=== PATIENT | male | born 1980 | race Two or more races ===

== ENCOUNTER → 2018-11-02 | Emergency (ER) | payer SELFPAY | END | disposition left against medical advice (07) | LOC: ER 21:37 | DX: R05 Cough (principal); Z53.21 Procedure and treatment not carried out due to patient leaving prior to being seen by health care provider ==

== ENCOUNTER → 2020-02-23 | Emergency (ER) | payer MEDICAID ==
[~2020-02-23] VITALS: Ht 180.3 cm; Wt 102.1 kg
[~2020-02-23] MED LIST: KETOROLAC TROMETH 60MG/2ML VIAL IM ONE
[2020-02-23 07:09] VITALS: BP 125/87
== END | disposition home or self-care (01) ==
LOC: ER 06:10
DX: R07.81 Pleurodynia (principal); Y08.02XA Assault by strike by baseball bat, initial encounter; Y93.89 Activity, other specified; Y92.89 Other specified places as the place of occurrence of the external cause; Y99.8 Other external cause status
CPT/HCPCS: 71101; 96372; 99283; J1885